=== PATIENT | female | born 1960 | race African-American/Black ===

== ENCOUNTER 2024-03-20 06:46 | Emergency (ER) | payer SELFPAY ==
[~2024-03-20] VITALS: Ht 154.9 cm; Wt 83.0 kg
[2024-03-20 08:06] VITALS: BP 152/67; PULSE 71; RESP 16; TEMP 97.8; O2SAT 99
[2024-03-20] MEDS: ACETAMINOPHEN 500 MG TAB PO ONE (08:22)
[2024-03-20] MEDS: HYDROcodone-ACET 5/325MG TAB PO ONE (08:32)
[2024-03-20] MEDS ORDERED: IBUP-1456 PO (08:37)
== END 2024-03-20 08:40 | disposition home or self-care (01) ==
LOC: ER 06:46
DX: M79.671 Pain in right foot (principal); Z79.899 Other long term (current) drug therapy
CPT/HCPCS: 73630